=== PATIENT | female | born 1990 | race Caucasian/White ===

== ENCOUNTER 2017-08-06 05:06 | Emergency (ER) | payer SELFPAY ==
[2017-08-06 05:18] VITALS: BP 112/85
[2017-08-06] MEDS ORDERED: Albuterol/Ipratropium 3.0-0.5 MG/3 ML Neb Soln NEB ONE (05:27)
--- NOTE | 2017-08-06 05:30 | EDM.PDOC ---
ED HPI GENERAL MEDICAL PROBLEM - General Chief Complaint: Respiratory Problem Stated Complaint: COUGH Time Seen by Provider: 08/06/17 05:17 Source of Information: Reports: Patient History Limitations: Reports: No Limitations - History of Present Illness INITIAL COMMENTS - FREE TEXT/NARRATIVE: This is a 27-year-old female. For the last 2-3 days she's been having sinus drainage or sore throat and a cough with some wheezing. She states she has run out of her inhaler and needs a new prescription. She thinks she might been running a low-grade fever yesterday but she did not take her temperature. She has never been tested positive for strep. She denies any nausea or vomiting. She is coughing up some phlegm but mostly clear. She also has been having a lot of nasal congestion and postnasal drainage. 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: Psychiatric History: Reports: Anxiety, Depression - Past Surgical History Head Surgeries/Procedures: Reports: Other (See Below) Female Surgical History: Reports: D&C Social & Family History - Family History Cardiac: Reports: Hypertension, Other (See Below) Psychiatric: Reports: Anxiety, Depression, Learning Disability, Other (See Below ) Endocrine/Metabolic: Reports: Diabetes, type II (Father, Paternal Uncle, PGM) Oncologic: Reports: Other (See Below) - Tobacco Use Smoking Status *Q: Unknown Ever Smoked - Living Situation & Occupation Living situation: Reports: Single Occupation: Employed ED ROS GENERAL - Review of Systems Review Of Systems: See Below Constitutional: Denies: Fever, Chills HEENT: Reports: Rhinitis, Sinus Problem, Throat Pain Respiratory: Reports: Shortness of Breath, Wheezing, Cough Cardiovascular: Denies: Chest Pain Endocrine: Reports: No Symptoms GI/Abdominal: Denies: Abdominal Pain, Nausea, Vomiting : Reports: No Symptoms Musculoskeletal: Reports: No Symptoms Skin: Reports: No Symptoms Neurological: Reports: No Symptoms Psychiatric: Reports: No Symptoms Hematologic/Lymphatic: Reports: No Symptoms ED EXAM, GENERAL - Physical Exam Exam: See Below Exam Limited By: No Limitations General Appearance: Alert, WD/WN, No Apparent Distress Eye Exam: Bilateral Eye: Normal Inspection Ears: Normal External Exam, Normal Canal, Normal TMs Nose: Clear Rhinorrhea Throat/Mouth: Normal Inspection, Normal Lips, Normal Voice, No Airway Compromise , Other (Mild inflammation but no tonsillar enlargement and there is postnasal drainage noted) Head: Normocephalic Neck: Supple Respiratory/Chest: Other (She has no occasional wheeze but no rhonchi or crackles, she does not appear to be in respiratory distress) Cardiovascular: Regular Rate, Rhythm, No Murmur Back Exam: Full Range of Motion Extremities: Normal Inspection, Normal Range of Motion Neurological: Alert, Oriented Psychiatric: Normal Affect, Normal Mood Skin Exam: Warm, Dry Course - Vital Signs Last Recorded V/S: Last Vital Signs Temp 98.6 F 08/06/17 05:16 Pulse 72 08/06/17 05:16 Resp 18 08/06/17 05:16 BP 112/85 08/06/17 05:16 Pulse Ox 99 08/06/17 05:47 - Orders/Labs/Meds Orders: Active Orders 24 hr Category Date Time Status RT Aerosol Therapy [RC] ASDIRECTED Care 08/06/17 05:27 Active Meds: Medications Discontinued Medications Generic Name Dose Route Start Last Admin Trade Name Barbara PRN Reason Stop Dose Admin Albuterol/Ipratropium 3 ml 08/06/17 05:27 08/06/17 05:46 Duoneb 3.0-0.5 Mg/3 Ml NEB 08/06/17 05:28 3 ml ONETIME ONE Administration - Re-Assessments/Exams Free Text/Narrative Re-Assessment/Exam: 08/06/17 05:58 The DuoNeb opened her up quite a bit and she feels like she is breathing much better. Departure - Departure Time of Disposition: 05:58 Disposition: Home, Self-Care 01 Condition: Good Clinical Impression: Acute sinusitis Qualifiers: Sinusitis location: unspecified location Recurrence: non-recurrent Qualified Code(s): J01.90 - Acute sinusitis, unspecified Acute pharyngitis Qualifiers: Pharyngitis/tonsillitis etiology: unspecified etiology Qualified Code(s): J02.9 - Acute pharyngitis, unspecified Acute bronchitis Qualifiers: Bronchitis organism: unspecified organism Qualified Code(s): J20.9 - Acute bronchitis, unspecified Reactive airway disease Qualifiers: Asthma severity: mild Asthma persistence: intermittent Asthma complication type : with acute exacerbation Qualified Code(s): J45.21 - Mild intermittent asthma with (acute) exacerbation - Discharge Information Prescriptions: Albuterol [Ventolin HFA] 18 gm IH QID PRN #1 inhaler PRN Reason: Wheezing Azithromycin [Zithromax] 250 mg PO DAILY #6 tab Referrals: PCP,None [Primary Care Provider] - Forms: ED Department Discharge Additional Instructions: Get the antibiotics and start taking them today, use the inhaler as needed for wheezing and shortness of breath, drink lots of fluids especially water and avoid sugar and caffeine, follow up with your family doctor later this week if your symptoms persist, return to the ER if needed - My Orders Last 24 Hours: My Active Orders 08/06/17 05:27 RT Aerosol Therapy [RC] ASDIRECTED - Assessment/Plan Last 24 Hours: My Active Orders 08/06/17 05:27 RT Aerosol Therapy [RC] ASDIRECTED
== END 2017-08-06 06:09 | disposition home or self-care (01) ==
LOC: JD.ED 05:06
DX: J45.21 Mild intermittent asthma with (acute) exacerbation (principal); J20.9 Acute bronchitis, unspecified; J01.90 Acute sinusitis, unspecified
CPT/HCPCS: 94640; 99283; 99283-25

== ENCOUNTER 2021-04-13 21:23 | Emergency (ER) | payer BC ==
[2021-04-14] MEDS ORDERED: Potassium Chloride 20 MEQ Tab.ER PO ONE (00:26)
[2021-04-14 00:33] VITALS: BP 117/81; PULSE 74
== END 2021-04-14 00:45 | disposition home or self-care (01) ==
LOC: JD.ED 21:23
DX: R07.9 Chest pain, unspecified (principal); R51.9 Headache, unspecified; M54.2 Cervicalgia; R11.0 Nausea; R19.7 Diarrhea, unspecified; R42 Dizziness and giddiness; M79.642 Pain in left hand; E87.6 Hypokalemia; Z20.822 Contact with and (suspected) exposure to COVID-19
CPT/HCPCS: 36415; 71046; 80048; 83735; 84484; 84703; 85025; 85379; 87635; 93005; 99285; A9270; 93010; U0002